=== PATIENT | male | born 1950 | race Native Hawaiian/Other Pacific Islander ===

== ENCOUNTER 2016-10-02 13:01 | Outpatient (CLI) | payer OTHER ==
[2016-10-02 13:53] LABS: PLATELET COUNT 230 K/uL (142-355)
[2016-10-02 15:50] LABS: POTASSIUM 3.9 mmol/L (3.6-5.2); SODIUM 136 mmol/L (136-145)
== END 2016-10-02 14:00 | disposition home or self-care (01) ==
LOC: LAB 13:01
PROVIDERS: Nurse Practitioner Family
DX: I47.1 Supraventricular tachycardia (principal); I11.0 Hypertensive heart disease with heart failure; E11.9 Type 2 diabetes mellitus without complications; R39.198 Other difficulties with micturition; E55.9 Vitamin D deficiency, unspecified
CPT/HCPCS: 80053; 80061; 82306; 82607; 83036; 84154; 84439; 84443; 85027

== ENCOUNTER 2017-05-27 13:12 | Outpatient (CLI) | payer OTHER ==
[2017-05-27 13:58] LABS: PLATELET COUNT 249 K/uL (142-355)
[2017-05-27 14:21] LABS: POTASSIUM 3.9 mmol/L (3.6-5.2); SODIUM 136 mmol/L (136-145)
== END 2017-05-27 19:03 | disposition home or self-care (01) ==
LOC: LAB 13:12
PROVIDERS: Nurse Practitioner Family
DX: I10 Essential (primary) hypertension (principal); K21.9 Gastro-esophageal reflux disease without esophagitis; E11.9 Type 2 diabetes mellitus without complications; R00.2 Palpitations; Z87.442 Personal history of urinary calculi; Z79.899 Other long term (current) drug therapy; Z51.81 Encounter for therapeutic drug level monitoring
CPT/HCPCS: 80053; 80061; 83036; 84154; 84436; 84443; 85027

== ENCOUNTER 2017-10-14 14:55 | Outpatient (CLI) | payer OTHER ==
[2017-10-14 15:38] LABS: PLATELET COUNT 233 K/uL (142-355)
== END 2017-10-14 22:08 | disposition home or self-care (01) ==
LOC: LAB 14:55
PROVIDERS: Nurse Practitioner Family
DX: I10 Essential (primary) hypertension (principal); E11.9 Type 2 diabetes mellitus without complications; R00.2 Palpitations; Z79.899 Other long term (current) drug therapy; Z51.81 Encounter for therapeutic drug level monitoring; Z12.5 Encounter for screening for malignant neoplasm of prostate; D51.8 Other vitamin B12 deficiency anemias; E55.9 Vitamin D deficiency, unspecified
CPT/HCPCS: 83036; 85027; 85651; 86430

== ENCOUNTER 2017-10-15 13:11 | Outpatient (CLI) | payer OTHER | END 2017-10-15 23:36 | disposition home or self-care (01) | LOC: LAB 13:11 | PROVIDERS: Nurse Practitioner Family | DX: I10 Essential (primary) hypertension (principal); E11.9 Type 2 diabetes mellitus without complications; K21.9 Gastro-esophageal reflux disease without esophagitis; Z12.5 Encounter for screening for malignant neoplasm of prostate; R00.2 Palpitations; Z79.899 Other long term (current) drug therapy; Z51.81 Encounter for therapeutic drug level monitoring; D51.8 Other vitamin B12 deficiency anemias; E55.9 Vitamin D deficiency, unspecified | CPT/HCPCS: 80053; 80061; 82306; 82607; 84153; 84403; 84436; 84443; 86318 ==

== ENCOUNTER 2018-02-19 15:52 | Emergency (ER) | payer OTHER ==
[~2018-02-19] VITALS: Ht 200.7 cm; Wt 129.3 kg
[2018-02-19 16:15] LABS: PLATELET COUNT 215 K/uL (142-355)
[2018-02-19 16:28] LABS: POTASSIUM 3.4 mmol/L (3.6-5.2); SODIUM 138 mmol/L (136-145)
[2018-02-19] MEDS ORDERED: DIOVAN HC1 PO (16:49)
[2018-02-19] MEDS ORDERED: GLIM4TAB PO (16:50)
[2018-02-19] MEDS ORDERED: ALBU90AE13 INH (16:50)
[2018-02-19] MEDS ORDERED: METF500T PO (16:50)
[2018-02-19 17:35] VITALS: BP 121/88
== END 2018-02-19 17:35 | disposition home or self-care (01) ==
LOC: ED 15:52
DX: R07.89 Other chest pain (principal); J44.9 Chronic obstructive pulmonary disease, unspecified; E11.9 Type 2 diabetes mellitus without complications; R00.0 Tachycardia, unspecified
CPT/HCPCS: 36415; 80053; 81000; 82550; 82553; 84484; 85027; 86318; 93005; 99283

== ENCOUNTER 2018-03-03 09:52 | Outpatient (CLI) | payer OTHER ==
[~2018-03-03 09:52] MED LIST: ALBU90AE13 INH; DIOVAN HC1 PO; GLIM4TAB PO; METF500T PO
== END 2018-03-03 20:15 | disposition home or self-care (01) ==
LOC: RESP 09:52
DX: R07.89 Other chest pain (principal); R06.02 Shortness of breath; Z79.899 Other long term (current) drug therapy
CPT/HCPCS: 93306

== ENCOUNTER 2018-03-18 08:55 | Outpatient (CLI) | payer OTHER ==
[2018-03-18 09:16] LABS: POTASSIUM 3.8 mmol/L (3.6-5.2)
== END 2018-03-18 20:06 | disposition home or self-care (01) ==
LOC: LABW 08:55
PROVIDERS: Nurse Practitioner Adult Health
DX: E11.9 Type 2 diabetes mellitus without complications (principal); Z79.01 Long term (current) use of anticoagulants
CPT/HCPCS: 36415; 80048

== ENCOUNTER 2018-06-08 12:10 | Outpatient (CLI) | payer OTHER | END 2018-06-08 23:01 | disposition home or self-care (01) | LOC: RAD 12:10 | DX: M77.30 Calcaneal spur, unspecified foot (principal) ==

== ENCOUNTER 2018-11-08 11:32 | Outpatient (CLI) | payer OTHER | END 2018-11-08 19:19 | disposition home or self-care (01) | LOC: RAD 11:32 | DX: M25.511 Pain in right shoulder (principal); M54.2 Cervicalgia ==

== ENCOUNTER 2019-01-13 09:32 | Outpatient (CLI) | payer OTHER | END 2019-01-13 23:59 | disposition home or self-care (01) | LOC: RAD 09:32 | DX: M54.5 Low back pain (principal); R10.84 Generalized abdominal pain ==

== ENCOUNTER 2019-10-27 09:21 | Outpatient (CLI) | payer OTHER | END 2019-10-27 18:56 | disposition home or self-care (01) | LOC: RAD 09:21 | DX: E11.9 Type 2 diabetes mellitus without complications (principal); I10 Essential (primary) hypertension; K21.9 Gastro-esophageal reflux disease without esophagitis; E78.5 Hyperlipidemia, unspecified; J45.909 Unspecified asthma, uncomplicated; R10.9 Unspecified abdominal pain; M54.5 Low back pain ==

== ENCOUNTER 2020-02-13 11:21 | Outpatient (CLI) | payer OTHER | END 2020-02-13 19:19 | disposition home or self-care (01) | LOC: RAD 11:21 | DX: R05 Cough (principal); J45.909 Unspecified asthma, uncomplicated; J32.9 Chronic sinusitis, unspecified ==

== ENCOUNTER 2020-03-05 12:32 | Outpatient (CLI) | payer OTHER | END 2020-03-05 23:44 | disposition home or self-care (01) | LOC: LABW 12:32 | DX: N28.89 Other specified disorders of kidney and ureter (principal) | CPT/HCPCS: 36415; 82565; 84520 ==

== ENCOUNTER 2021-02-18 08:10 | Outpatient (CLI) | payer OTHER | END 2021-02-18 20:10 | disposition home or self-care (01) | LOC: RAD 08:10 | PROVIDERS: ATTEND Nurse Practitioner Family | DX: E11.65 Type 2 diabetes mellitus with hyperglycemia (principal); J43.9 Emphysema, unspecified; I10 Essential (primary) hypertension; K21.9 Gastro-esophageal reflux disease without esophagitis; E78.49 Other hyperlipidemia; R05 Cough ==

== ENCOUNTER 2021-08-09 11:34 | Emergency (ER) | payer OTHER ==
[~2021-08-09] VITALS: Ht 200.7 cm; Wt 122.5 kg
[2021-08-09 11:40] VITALS: TEMP 98
[2021-08-09 12:05] LABS: PLATELET COUNT 211 K/uL (142-355)
[2021-08-09 12:16] LABS: POTASSIUM 3.7 mmol/L (3.6-5.2)
[2021-08-09 13:58] VITALS: BP 129/74
== END 2021-08-09 13:59 | disposition home or self-care (01) ==
LOC: ED 11:34
PROVIDERS: Emergency Medicine
DX: J45.901 Unspecified asthma with (acute) exacerbation (principal); D72.828 Other elevated white blood cell count; Z20.822 Contact with and (suspected) exposure to COVID-19
CPT/HCPCS: 36600; 80053; 82805; 83880; 84484; 85027; 85610; 87635; 93005; 94640; 94664; 99283; J1020; J2920; U0003

== ENCOUNTER 2022-01-02 13:44 | Outpatient (CLI) | payer OTHER ==
[2022-01-02 14:48] LABS: PLATELET COUNT 229 K/uL (142-355)
== END 2022-01-02 20:57 | disposition home or self-care (01) ==
LOC: LABW 13:44
PROVIDERS: ATTEND Internal Medicine Critical Care Medicine
DX: J45.30 Mild persistent asthma, uncomplicated (principal)
CPT/HCPCS: 36415; 82785; 85027